=== PATIENT | male | born 1930 | race Caucasian/White ===

== ENCOUNTER 2016-11-03 17:31 | Emergency (ER) | payer OTHER ==
[2016-11-03 15:49] LABS: BASOPHILS 0.1 %; BASOPHILS ABSOLUTE 0.01 10/3/uL (0.0-0.16); EOSINOPHILS 1.5 %; EOSINOPHILS ABSOLUTE 0.12 10/3/uL (0.0-0.53); ER CBC TAT 0 Hrs 12 Mins; HEMOGLOBIN 14.8 g/dL (13.6-17.8); IMMATURE GRANULOCYTES 0.4 %; IMMATURE GRANULOCYTES ABSOLUTE 0.03 10/3/uL (0.0-0.11); LYMPHOCYTES 24.5 %; LYMPHOCYTES ABSOLUTE 1.99 10/3/uL (0.67-4.30); MEAN CORPUSCULAR HEMOGLOB 31.5 pg (26.0-34.0); MEAN PLATELET VOLUME 8.5 fL (9.2-13.0); MONOCYTES 9.9 %; NEUTROPHILS 63.6 %; NEUTROPHILS ABSOLUTE 5.16 10/3/uL (2.02-8.40); PLATELET COUNT 132 10/3/uL (150-400); WHITE BLOOD CELLS 8.1 10/3/uL (4.5-10.5)
[2016-11-03 15:53] LABS: HEMATOCRIT 43.5 % (40.0-51.0); INTERNATIONAL NORMAL RATI 1.1 UNITS (-); MANUAL DIFF NO %; MEAN CORPUSCULAR VOLUME 92.6 fL (80-100); PARTIAL THROMBO TIME 32.6 SEC (22.5-37.2); PROTIME (NOT ORD) 13.8 SEC (12.0-14.5)
[2016-11-03 15:59] LABS: BUN (BLOOD UREA NITROGEN) 19 MG/DL (6-23); CALCIUM, SERUM 8.6 MG/DL (8.5-10.4); CHEST PAIN PROFILE TAT 0 Hrs 22 Mins; CHLORIDE, SERUM 103 MMOL/L (96-112); CO2 (CARBON DIOXIDE) 30 MMOL/L (24-34); CREATININE 1.25 MG/DL (0.70-1.30); GFR AFRICAN AMERICAN 60 ML/MIN (>=60); GFR NON AFRICAN AMERICAN 51 ML/MIN (>=60); GLUCOSE, SERUM 98 MG/DL (60-99); POTASSIUM, SERUM 3.8 MMOL/L (3.5-5.3); SODIUM, SERUM 141 MMOL/L (135-148); TROPONIN I <0.02 NG/ML (<0.05)
[~2016-11-03 17:31] MED LIST: ACET500CAP PO; ASAB PO; CYANO1000T PO; FISH-EPA1000 MG PO; HCTZ12.5 PO; HYDROCHLOROT12.5 MG PO; LEVOTHROID50 MCG PO; LEVOTHYROXIN25 MCG PO; LIPITOR10 PO; LOPID6 PO; NORCO1 TA1 PO; PRILO PO; TESS PO; VITAMIN B-121000 MC1 SL; VITAMIN D31000 UNIT PO; [UNRECOGNIZED DRUG - OTHER] TOP
[2017-04-27] MEDS ORDERED: HCTZ25B PO (06:11)
[2017-04-27] MEDS ORDERED: ASABAYER PO (06:12)
[2017-04-27] MEDS ORDERED: SYN.05 PO (06:12)
[2017-04-27] MEDS ORDERED: PRILO PO (06:13)
[2017-04-27] MEDS ORDERED: VITAMIN D31000 UNIT PO (06:13)
[2017-04-27] MEDS ORDERED: LIPITOR10 PO (06:14)
[2017-04-27] MEDS ORDERED: TRAZ100 PO (06:15)
[2017-04-27] MEDS ORDERED: PROSCAR5 PO (06:15)
[2017-04-27] MEDS ORDERED: FLOMAX4 PO (06:15)
[2017-04-27] MEDS ORDERED: EXELON4.6T TOP (06:15)
[2017-04-27] MEDS ORDERED: NITROSTAT0.4 MG SL (15:00)
[2017-04-27] MEDS ORDERED: COREG3 PO (15:00)
== END 2016-11-03 18:37 | disposition home or self-care (01) ==
LOC: ER 17:31
PROVIDERS: Emergency Medicine
DX: J18.9 Pneumonia, unspecified organism (principal); I50.9 Heart failure, unspecified; I25.10 Atherosclerotic heart disease of native coronary artery without angina pectoris; Z79.82 Long term (current) use of aspirin; Z79.899 Other long term (current) drug therapy
CPT/HCPCS: 71020; 80048; 83735; 83880; 84484; 85025; 85610; 85730; 93005; 99285